=== PATIENT | male | born 1965 | race Hispanic/Latino ===

== ENCOUNTER 2023-01-24 11:08 | Emergency (ER) | payer SELFPAY ==
[2023-01-24 12:05] LABS: #Basophils 0.1 thou/uL (0.0-0.2); #Eosinphils 0.1 thou/uL (0.0-0.7); #Lymphocytes 1.8 thou/uL (1.20-3.40); #Monocytes 0.3 thou/uL (0.11-0.59); #Neutrophils 2.8 thou/uL (1.40-6.50); %Basophils 1.7 % (0.0-1.0); %Eosinophils 1.8 % (0.0-10.0); %Lymphocytes 35.3 % (21.0-51.0); %Monocytes 5.8 % (0.0-10.0); %Neutrophils 55.4 % (42.0-75.0); Hemoglobin 16.8 g/dL (14.0-18.0); Mean Corpuscular Hemoglobin 31.4 pg (27.0-31.0); Mean Corpuscular Volume 95.3 fl (78.0-98.0); Platelet Adequacy Comment Appears Decreased; Platelet Count 93 10x3/uL (130-400); RBC Distribution Width 12.4 % (11.5-14.5); Red Blood Cell (RBC) Count 5.33 mill/uL (4.70-6.10)
[2023-01-24 12:08] LABS: ALT (SGPT) 63 U/L (8-55); AST (SGOT) 43 U/L (5-34); Acetaminophen Less than 10 mcg/mL (10.0-30.0); Albumin 4.3 g/dL (3.5-5.0); Alcohol Less than 10.0 mg/dL (Less than 10); Alkaline Phosphatase 139 U/L (40-110); Anion Gap 16 mmol/L (10-20); BUN (Urea Nitrogen) 9 mg/dL (8.4-25.7); Bilirubin, Total 0.5 mg/dL (0.2-1.2); Calc. Creatinine Clearance 0 mL/min (70-130); Calcium 9.3 mg/dL (7.8-10.44); Carbon Dioxide 20 mmol/L (22-29); Chloride 106 mmol/L (98-107); Estimated GFR 101; Globulin 3.7 g/dL (2.4-3.5); Glucose 205 mg/dL (70-105); Magnesium 1.9 mg/dL (1.6-2.6); Potassium 4.3 mmol/L (3.5-5.1); Salicylate Less than 8.0 mg/dL (15.0-30.0); Sodium 138 mmol/L (136-145)
[2023-01-24 14:40] LABS: Troponin I Less than 0.010 ng/mL (< 0.028)
== END 2023-01-24 15:04 | disposition home or self-care (01) ==
LOC: MADERS 11:08
DX: I16.0 Hypertensive urgency (principal); Z76.0 Encounter for issue of repeat prescription; R74.01 Elevation of levels of liver transaminase levels; K21.9 Gastro-esophageal reflux disease without esophagitis; I10 Essential (primary) hypertension; Z87.891 Personal history of nicotine dependence; Z79.899 Other long term (current) drug therapy
CPT/HCPCS: 36415; 70450; 71045; 80053; 80307; 83735; 83880; 84484; 85025; 93005

== ENCOUNTER 2025-03-20 14:02 | Emergency (ER) | payer BC ==
[~2025-03-20 14:02] MED LIST: Iopamidol 370 76% 100 ML VIAL ONE
[2025-03-20] MEDS ORDERED: Acetaminophen 500 MG TAB ONE (14:35)
[2025-03-20 14:46] LABS: Hematocrit 50.9 % (42.0-52.0); Hemoglobin 16.0 g/dL (14.0-18.0); MDiff Complete? YES; Mean Corpuscular Hemoglobin 30.6 pg (27.0-31.0); Mean Corpuscular Volume 97.5 fl (78.0-98.0); Platelet Adequacy Comment Appears Decreased; Platelet Count 81 10x3/uL (130-400); Red Blood Cell (RBC) Count 5.22 mill/uL (4.70-6.10); White Blood Cell (WBC) Count 7.5 10x3/uL (4.8-10.8)
[2025-03-20 14:54] LABS: ALT (SGPT) 39 U/L (Less than 45); AST (SGOT) 80 U/L (11-34); Albumin 3.5 g/dL (3.1-4.5); Alkaline Phosphatase 172 U/L (40-110); Anion Gap 14 mmol/L (10-20); BUN (Urea Nitrogen) 8 mg/dL (8.4-25.7); Bilirubin, Total 2.0 mg/dL (0.3-1.2); Calc. Creatinine Clearance 0 mL/min (70-130); Calcium 8.6 mg/dL (7.8-10.44); Carbon Dioxide 25 mmol/L (22-29); Chloride 104 mmol/L (98-107); Globulin 4.7 g/dL (2.4-3.5); Glucose 189 mg/dL (70-105); Lipase 111 U/L (8-78); Potassium 4.1 mmol/L (3.5-5.1); Sodium 139 mmol/L (136-145)
[2025-03-20 14:55] LABS: Troponin I 0.023 ng/mL (< 0.028)
== END 2025-03-20 16:42 | disposition home or self-care (01) ==
LOC: MADERS 14:02
DX: K85.90 Acute pancreatitis without necrosis or infection, unspecified (principal); K70.30 Alcoholic cirrhosis of liver without ascites; I10 Essential (primary) hypertension; E66.9 Obesity, unspecified; Z87.891 Personal history of nicotine dependence
CPT/HCPCS: 71045; 74177; 80053; 83690; 83880; 84484; 85025; 93005; 94760; Q9967

== ENCOUNTER 2025-05-08 19:18 | Emergency (ER) | payer BC ==
[2025-05-08] MEDS ORDERED: Ondansetron PF 4 MG/2 ML Vial ONE (20:16)
[2025-05-08 20:42] LABS: #Basophils 0.1 thou/uL (0.0-0.2); #Eosinophils 0.3 thou/uL (0.0-0.7); #Lymphocytes 2.2 thou/uL (1.20-3.40); #Monocytes 0.7 thou/uL (0.11-0.59); #Neutrophils 4.3 thou/uL (1.40-6.50); %Basophils 1.8 % (0.0-1.0); %Eosinophils 4.3 % (0.0-10.0); %Lymphocytes 28.2 % (21.0-51.0); %Monocytes 9.2 % (0.0-10.0); %Neutrophils 56.5 % (42.0-75.0); Hematocrit 45.2 % (42.0-52.0); Hemoglobin 15.3 g/dL (14.0-18.0); Mean Corpuscular Hemoglobin 31.6 pg (27.0-31.0); Mean Corpuscular Volume 93.4 fl (78.0-98.0); Platelet Count 134 10x3/uL (130-400); Red Blood Cell (RBC) Count 4.84 mill/uL (4.70-6.10); White Blood Cell (WBC) Count 7.6 10x3/uL (4.8-10.8)
[2025-05-08 20:56] LABS: ALT (SGPT) 39 U/L (Less than 45); AST (SGOT) 74 U/L (11-34); Albumin 3.4 g/dL (3.1-4.5); Alkaline Phosphatase 172 U/L (40-110); Anion Gap 15 mmol/L (10-20); BUN (Urea Nitrogen) 8 mg/dL (8.4-25.7); Bilirubin, Total 2.1 mg/dL (0.3-1.2); Calc. Creatinine Clearance 0 mL/min (70-130); Calcium 8.9 mg/dL (7.8-10.44); Carbon Dioxide 21 mmol/L (22-29); Chloride 104 mmol/L (98-107); Globulin 4.8 g/dL (2.4-3.5); Glucose 157 mg/dL (70-105); Lipase 60 U/L (8-78); Potassium 4.0 mmol/L (3.5-5.1); Sodium 136 mmol/L (136-145); Troponin I Less than 0.010 ng/mL (< 0.028)
[2025-05-08 22:52] LABS: Glucose, Urine (Dipstick) Negative (Negative); Leukocyte Trace (Negative); Protein, Urine (Dipstick) Negative (Neg-Trace); Specific Gravity, Urine 1.010 (1.005-1.030)
[2025-05-08 22:54] LABS: Bacteria/HPF Rare-Few HPF (None Seen); CAUTI Indications for Culture Pelvic or flank pain; RBC/HPF 0-3 HPF (0-3)
[2025-05-08 22:55] LABS: Urine Culture Reflex No No
== END 2025-05-08 23:18 | disposition home or self-care (01) ==
LOC: MADERS 19:18
DX: S39.011A Strain of muscle, fascia and tendon of abdomen, initial encounter (principal); F10.10 Alcohol abuse, uncomplicated; K74.60 Unspecified cirrhosis of liver; I10 Essential (primary) hypertension; K21.9 Gastro-esophageal reflux disease without esophagitis; Y90.9 Presence of alcohol in blood, level not specified; Z87.891 Personal history of nicotine dependence; Z79.899 Other long term (current) drug therapy; X50.1XXA Overexertion from prolonged static or awkward postures, initial encounter
CPT/HCPCS: 71275; 74174; 80053; 81001; 83690; 84484; 85025; 93005; 96374; 96375; Q9967